=== PATIENT | female | born 1950 | race Two or more races ===

== ENCOUNTER 2025-01-24 01:30 | Emergency (ER) | payer MEDICARE, MEDICAID, SELFPAY ==
[2025-01-24 01:30] VITALS: BMI 28.1
--- NOTE | 2025-01-24 01:34 | PD.EDADULT ---
ED General RME/HPI General Chief complaint: General Adult/Misc Complain Stated complaint: HEADACHE/ BP HIGH 174/92 Time Seen by Provider: 01/24/25 01:34 Arrival date/time: 01/24/25 01:30 RME / HPI RME / HPI narrative: Patient is 74 years old female with past medical history of diabetes type 2 and thyroid cancer s/p total resection presented to the ED due to high blood pressure, headache and dizziness. Per daughter patient was complaining of headache since today's morning and it was worsening. They got blood pressure machine and check her blood pressure which was 170/90. She was never been diagnosed with hypertension before and never had high blood pressure. She denied any nausea, vomiting, chest pain, shortness of breath. She reports her recently and she was in a lot of stress. Related Data Home Medications ?Medication ?Instructions ?Recorded ?Confirmed Levothyroxine * (SYNTHROID *) 88 mcg PO QDAY #0 tabs 12/17/17 metformin 1,000 mg tablet 1,000 mg PO HS #0 tabs 12/17/17 (Glucophage) metformin 500 mg tablet 500 mg PO ACBR #0 tabs 12/17/17 (Glucophage) Previous Rx's ?Medication ?Instructions ?Recorded Prednisone 10 1 tab PO daily #7 tabs 12/17/17 valacyclovir 1 gram tablet 1,000 mg PO daily #7 tabs 12/17/17 (Valtrex) clonidine HCl 0.1 mg tablet 0.1 mg PO Q8H PRN hypertensive 01/24/25 emergency #30 tabs Allergies Allergy/AdvReac Type Severity Reaction Status Date / Time NKA* Allergy Uncoded 11/12/23 07:16 Review of Systems Review of Systems Systems Reviewed: All systems reviewed, normal except as documented ED Exam Narrative Physical exam: Gen: Well-developed and well-nourished elderly female. HEENT: NCAT, PERRLA, EOMI, MMM, anicteric conjunctivae. CVS: normal S1 and S2. RRR. No M/R/G. Resp: CTA B/L. No rhonchi, rales, crackles or wheezing. Abd: soft, non-tender, non-distended. BS+ in all 4 quadrants. MSK: Good ROM in BUE & BLE. No edema or rash. Neuro: CN II-XII grossly intact. Strength 5/5 in BUE & BLE. Alert and oriented x3. Course Course Course Narrative: 021 Hydralazine 10 mg IV given, BP improved to 130/[address] is negative for hemorrhage or mass effect. Quality Measures none Orders Category Date Time Status EKG (ED ONLY) *Do not use* NOW Care 01/24/25 01:55 Completed IV [Insert IV] NOW Care 01/24/25 01:55 Active Straight [In and Out Catheter] X1 Care 01/24/25 02:[address] head/brain wo con Stat Exams 01/24/25 01:54 Taken EKG (ED Only) Stat Exams 01/24/25 01:54 Draft CBC Stat Lab 01/24/25 02:14 Completed CMP [Comprehensive Metabolic Panel] Stat Lab 01/24/25 02:14 Completed Free T4 (Free Thyroxine) Stat Lab 01/24/25 02:14 Completed Magnesium Stat Lab 01/24/25 02:14 Completed TSH [Thyroid Stimulating Hormone] Stat Lab 01/24/25 02:14 Completed Troponin I Stat Lab 01/24/25 02:14 Completed Urinalysis Stat Lab 01/24/25 02:51 Completed Acetaminophen Tab [Tylenol ES Tab] Med 01/24/25 02:35 Discontinued 500 mg PO X1 ONE hydrALAZINE INJ [Apresoline Inj] Med 01/24/25 01:55 Discontinued 10 mg IV X1 ONE Vital Signs Vital signs: Vital Signs Temperature 98.3 F 01/24/25 01:36 Pulse Rate 67 01/24/25 01:36 Respiratory Rate 17 01/24/25 01:36 Blood Pressure 172/93 H 01/24/25 01:36 Pulse Oximetry (%) 99 01/24/25 01:36 Oxygen Delivery Method Room Air 01/24/25 01:36 Procedures -ED EKG Interpretation Sinus bradycardia: Date of EK01/24/25 Time of EK:58 Rate: 57 Interpretation: Reviewed by me Additional EKG comment: Sinus bradycardia MDM Patient data External records reviewed:: [facility] previous records Clinical information provided by:: patient and family Social determinants that could affect healthcare access:: none Patient has the following chronic illnesses:: diabetes type 2 and thyroid cancer s/p total resection How is presenting disease/condition affected by chronic disease/condition?: uneffected by Evaluation data The following diagnostics were reviewed and interpreted by me:: lab results, radiology exam(s) and EKG tracing(s) Lab and/or radiology exams considered but not ordered:: CTA Interpretation Summary: WNL Medications Medications considered but not ordered:: Aspirin, clonidine Medication administrations:: Medication Administration History Discontinued Medications Acetaminophen (Acetaminophen 500 Mg Tablet) 500 mg PO X1 ONE Stop: 01/24/25 02:36 Last Admin: 01/24/25 02:47 Dose: 500 mg Documented By: EF Hydralazine HCl (Hydralazine Inj 20 Mg/Ml Vial) 10 mg IV X1 ONE Stop: 01/24/25 01:56 Last Admin: 01/24/25 02:10 Dose: 10 mg Documented By: EE Hydralazine 10 mg IV. Acetaminophen 500 mg PO. Consultations Consultation(s) initiated? (list below): No Diagnosis Differential Diagnosis ED Complaint MDM: HTN urgency/emergency, CVA, hyperthyroidism Most likely diagnosis given after review of the tests above:: HTN urgency Admission Indicated Admission indicated?: not indicated Explain why admission is indicated or not indicated:: Patient had elevated BP with headache and dizziness, which are resolved after BP was lowered. She can be safely discharged and follow up with PCP outpatient. Admission Request Was there a request for admission?: No Disposition Plan Disposition Plan: Discharge Discharge Attestation Discharge Attestation: The patient and all family members were given an opportunity to ask questions and understood the discharge instructions. Discharge instructions specifically effects, indications for sooner follow up or return to the emergency department, and the expected course of current diagnosis. Patient condition: Stable Medical Decision Making Differential Diagnosis Differential Diagnosis: HTN urgency/emergency, CVA, hyperthyroidism Lab Data 01/24/25 02:14 01/24/25 02:14 Labs: Lab Results 01/24/25 01/24/25 Range/Units 02:14 02:51 WBC 6.2 (3.6-11.0) Thou/mm3 RBC 4.74 (4.00-5.20) Miln/mm3 Hgb 14.5 (12.0-16.0) g/dL Hct 41.6 (36.0-46.0) % MCV 88 (80-100) fL MCH 30.6 (25.0-35.0) pg MCHC 34.9 (31.0-37.0) g/dl RDW Std Deviation 42.5 (36.4-46.3) fL Plt Count 223 (140-440) Thou/mm3 Neut % (Auto) 49 (37-80) % Lymph % (Auto) 37 (10-50) % [place] % (Auto) 9 (0-12) % Eos % (Auto) 4 (0-10) % Baso % (Auto) 1 (0-2.5) % Neut # (Auto) 3.1 (1.8-7.7) Thou/mm3 Lymph # (Auto) 2.3 (1.0-4.8) Thou/mm3 [place] # (Auto) 0.6 (0.0-0.8) Thou/mm3 Eos # (Auto) 0.3 (0.0-0.5) Thou/mm3 Baso # (Auto) 0.1 (0.0-0.2) Thou/mm3 Immature Gran # (Auto) 0.02 H (0.00-0.00) Thou/mm3 Absolute Nucleated RBC 0.00 (0.00-0.00) Thou/mm3 Immature Gran % 0 (0-0) % Nucleated RBC % 0 (0) /100 WBC Sodium 141 (136-145) mMol/L Potassium 3.6 (3.4-5.1) mMol/L Chloride 107 (98-107) mMol/L Carbon Dioxide 26.4 (20.0-31.0) mMol/L Anion Gap 8 (7-16) BUN 11 (9-23) mg/dL Creatinine 0.7 (0.6-1.3) mg/dL Estim Creat Clear Calc 63.6 (>60) mL/min eGFR > 60 (60 - ) See Note BUN/Creatinine Ratio 16 (12-20) Ratio Glucose 138 H (74-106) mg/dL Calculated Osmolality 282 (275-295) Calcium 10.0 (8.3-10.6) mg/dL Corrected Calcium 10.0 (8.5-10.1) mg/dL Magnesium 2.2 (1.6-2.6) mg/dL Total Bilirubin 0.6 (0.3-1.2) mg/dL AST 27 (0-34) U/L ALT 22 (10-49) U/L Alkaline Phosphatase 102 (46-116) U/L Troponin I < 0.002 (0.0-0.045) ng/mL Total Protein 7.9 (5.7-8.2) gm/dL Albumin 4.6 (3.4-4.8) gm/dL Globulin 3.3 (2.3-3.5) gm/dL Albumin/Globulin Ratio 1.4 (1.2-2.2) TSH 5.69 H (0.55-4.78) uIU/mL Free T4 1.40 (0.89-1.76) ng/dL Ur Collection Type Clean Catch Urine Color Colorless A (Lt Yel-Yel) Urine Clarity Clear (Clear/Hazy) Urine pH 6.5 (5.0-7.0) Ur Specific [place] 1.008 (1.001-1.035) Urine Protein Negative (Neg - Trace) Urine Glucose (UA) Negative (Negative) Urine Ketones Negative (Negative) Urine Blood Negative (Negative) Urine Nitrite Negative (Negative) Urine Bilirubin Negative (Negative) Urine Urobilinogen (Auto) Negative (0.0-1.0) mg/dL Ur Leukocyte Esterase Negative (Negative) Urine RBC 2 (0-3) /hpf Urine WBC 2 (0-5) /hpf Ur Squamous Epith Cells < 1 (0-5) /hpf Urine Bacteria None (None) Discharge Plan Plan Patient Disposition: HOME (Self Care) Patient condition on transfer: Stable Prescriptions/Referrals Prescriptions/Med Rec: New clonidine HCl 0.1 mg tablet 0.1 mg PO Q8H PRN (Reason: hypertensive emergency) Qty: 30 0RF No Action metformin [Glucophage] 500 MG tablet 500 mg PO ACBR Qty: 0 metformin [Glucophage] 1,000 MG tablet 1,000 mg PO HS Qty: 0 Levothyroxine * (SYNTHROID *) 88 MCG tablet 88 mcg PO QDAY Qty: 0 valacyclovir [Valtrex] 1,000 MG tablet 1,000 mg PO daily Qty: 7 0RF Prednisone 10 1 tab PO daily Qty: 7 0RF Referrals: Temporary Provider,ED [Physician] - In 1 week Problem List Clinical Impression: Hypertensive urgency Patient/Caregiver Discharge Instructions Education Materials: ED High Blood Pressure ... Additional Instructions: Recommendation after ER visit: -check your blood pressure daily and record it. -follow up with PCP within 1 week. -take clonidine 0.1 mg every 8 hours as needed if BP is above 140/90. Take 2 tablets if BP is above 180/100. -continue home medications as prescribed. -return to the ED if symptoms recur or worsen. Recomendaci?n despu?s de la visita a urgencias: -Controle kaye presi?n arterial diariamente y reg?strela. -Brandon un seguimiento con kaye m?dico de atenci?n primaria dentro de julissa semana. -[place] clonidina 0,1 mg cada 8 horas seg?n sea necesario si la presi?n arterial es superior a 140/90. [place] 2 comprimidos si la presi?n arterial es superior a 180/100. -Contin?e tomando los medicamentos en casa seg?n lo prescrito. -Regrese a urgencias si los s?ntomas reaparecen o empeoran. Print Language: Upper Sorbian Stand Alone Forms: Carol Award Info., Patient Portal Info Letter
[2025-01-24 01:36] VITALS: BP 172/93; PULSE 67; RESP 17; TEMP 36.8; O2SAT 99
--- NOTE | 2025-01-24 01:54 | XR_ITS ---
Examination: CT brain head without contrast. 2-D sagittal coronal reconstructions Date and time of exam:January 24, 2025 0204 hrs. Indications: High blood pressure with headache today CTDI: vol (mGy):49.2 DLP: (mGycm):953 Technique: Multiple CT axial sections of the brain have been obtained, 5 mm slice thickness. Contrast has not been administered. 2-D sagittal, coronal reconstructions have been obtained Low dose protocols were performed. One or more of the following dose reduction techniques were used; automated exposure control, adjustment of the mA and/or KV according to patient size, use of iterative reconstruction technique. Findings: No significant ventricular enlargement. Intra-axial or extra-axial hemorrhage density is not seen. No mass effect or midline shift Basal cisterns are not remarkable. Fourth ventricle is midline. Cranial vault intact. Impression: Negative for acute hemorrhage, mass effect or midline shift
--- NOTE | 2025-01-24 01:54 | EKG_ITS ---
[facility] Test Date: 2025-01-24 Pat Name: RENATE LITTLE Department: Room: - Gender: Female [employer]: : 1950 Requested By: Rudy Chambers Order Number: [id number] Reading MD: Rudy Chambers Measurements Intervals [place] Rate: 57 P: 9 [place]: 158 QRS: 25 QRSD: 99 T: 19 QT: 408 QTc: 399 Interpretive Statements SINUS BRADYCARDIA No previous ECG available for comparison /store/S0/[id number].pdf
[2025-01-24 02:10] VITALS: BP 166/89; PULSE 67
[2025-01-24] MEDS: hydrALAZINE INJ 20 MG/ML VIAL 10 MG IV (02:10)
[2025-01-24 02:12] VITALS: BP 166/89; PULSE 67; RESP 19; TEMP 36.7; O2SAT 96
[2025-01-24 02:25] LABS: Basophils # (Auto) 0.1 Thou/mm3 (0.0-0.2); Basophils % (Auto) 1 % (0-2.5); Eosinophils # (Auto) 0.3 Thou/mm3 (0.0-0.5); Eosinophils % (Auto) 4 % (0-10); Hematocrit 41.6 % (36.0-46.0); Hemoglobin 14.5 g/dL (12.0-16.0); Immature Granulocytes % (Auto) 0 % (0-0); Immature Granulocytes Auto 0.02 Thou/mm3 (0.00-0.00); Lymphocytes # (Auto) 2.3 Thou/mm3 (1.0-4.8); Lymphocytes % (Auto) 37 % (10-50); Mean Corpuscular HGB Conc 34.9 g/dl (31.0-37.0); Mean Corpuscular Hemoglobin 30.6 pg (25.0-35.0); Mean Corpuscular Volume 88 fL (80-100); Monocytes # (Auto) 0.6 Thou/mm3 (0.0-0.8); Monocytes % (Auto) 9 % (0-12); Neutrophils # (Auto) 3.1 Thou/mm3 (1.8-7.7); Neutrophils % (Auto) 49 % (37-80); Nucleated Red Blood Cell % 0 /100 WBC (0); Platelet Count 223 Thou/mm3 (140-440); RDW Standard Deviation 42.5 fL (36.4-46.3); Red Blood Count 4.74 Miln/mm3 (4.00-5.20); White Blood Count 6.2 Thou/mm3 (3.6-11.0)
--- NOTE | 2025-01-24 02:45 | PRELIM_ITS ---
CT scan of the head without intravenous contrast (axial sections with sagittal and coronal reformats). January 24, 2025 at 0204 hours Clinical History: Stroke. Comparison: No prior study is available for comparison. Findings: There is no evidence of intracranial hemorrhage or mass effect. The CSF spaces are prominent consistent with volume loss. There are subcortical and periventricular white matter hypodensities suggestive of small vessel ischemia. The mastoid air cells and visualized paranasal sinuses are clear. Impression: No evidence of intracranial hemorrhage or mass effect. Chronic small vessel ischemia and volume loss. Discussion Details: Results verbally communicated to : Dr Chambers at 02:33 AM 01/24/2025 Report Electronically Signed By: Jaylen Claire 01/24/2025 2:44:04 AM [EST]
[2025-01-24] MEDS: ACETAMINOPHEN 500 MG TABLET PO (02:47)
[2025-01-24 03:03] LABS: Alanine Aminotransferase 22 U/L (10-49); Albumin, Serum 4.6 gm/dL (3.4-4.8); Albumin/Globulin Ratio 1.4 (1.2-2.2); Alkaline Phosphatase 102 U/L (46-116); Anion Gap 8 (7-16); Aspartate Amino Transferase 27 U/L (0-34); BUN/Creatinine Ratio 16 Ratio (12-20); Bilirubin,Total 0.6 mg/dL (0.3-1.2); Blood Urea Nitrogen 11 mg/dL (9-23); Carbon Dioxide 26.4 mMol/L (20.0-31.0); Chloride 107 mMol/L (98-107); Creatinine (Component) 0.7 mg/dL (0.6-1.3); Estimated Creatinine Clearance 63.6 mL/min (>60); Globulin 3.3 gm/dL (2.3-3.5); Glucose 138 mg/dL (74-106); Magnesium 2.2 mg/dL (1.6-2.6); Osmolality,Calculated 282 (275-295); Potassium 3.6 mMol/L (3.4-5.1); Sodium 141 mMol/L (136-145); Thyroid Stimulating Hormone 5.69 uIU/mL (0.55-4.78); Total Protein 7.9 gm/dL (5.7-8.2); Troponin I < 0.002 ng/mL (0.0-0.045); eGFR > 60 See Note
[2025-01-24 03:16] LABS: Collection Type, Urine Clean Catch
[2025-01-24 03:19] LABS: Bilirubin,Urine Negative (Negative); Blood,Urine Negative (Negative); Clarity,Urine Clear (Clear/Hazy); Color,Urine Colorless (Lt Yel-Yel); Glucose, Urine Negative (Negative); Ketones,Urine Negative (Negative); Leukocyte Esterase,Urine Negative (Negative); Nitrite,Urine Negative (Negative); PH,Urine 6.5 (5.0-7.0); Protein,Urine Negative (Neg - Trace); RBC,Urine 2 /hpf (0-3); Specific Gravity,Urine 1.008 (1.001-1.035); Squamous Epithelial Cell,Urine < 1 /hpf (0-5); Urobilinogen,Urine Negative mg/dL (0.0-1.0); WBC,Urine 2 /hpf (0-5)
[2025-01-24 03:40] VITALS: BP 125/67; PULSE 71; RESP 19; TEMP 36.7; O2SAT 99
== END 2025-01-24 04:05 | disposition home or self-care (01) ==
PROVIDERS: Student in an Organized Health Care Education/Training Program; Emergency Provider Emergency Medicine; PCP Nurse Practitioner Family
DX: I16.0 Hypertensive urgency (principal); R51.9 Headache, unspecified; R00.1 Bradycardia, unspecified
CPT/HCPCS: 36415; 70450; 80053; 81001; 83735; 84439; 84443; 84484; 85025; 93005; 99284; J0360; A9270

== ENCOUNTER → 2025-11-11 | Outpatient (CLI) | payer MEDICARE, MEDICAID, SELFPAY ==
[2025-11-11 12:24] LABS: Basophils # (Auto) 0.0 Thou/mm3 (0.0-0.2); Basophils % (Auto) 1 % (0-2.5); Eosinophils # (Auto) 0.2 Thou/mm3 (0.0-0.5); Eosinophils % (Auto) 2 % (0-10); Hematocrit 43.5 % (36.0-46.0); Hemoglobin 14.9 g/dL (12.0-16.0); Immature Granulocytes Auto 0.01 Thou/mm3 (0.00-0.00); Lymphocytes # (Auto) 2.2 Thou/mm3 (1.0-4.8); Lymphocytes % (Auto) 32 % (10-50); Mean Corpuscular HGB Conc 34.3 g/dl (31.0-37.0); Mean Corpuscular Hemoglobin 30.5 pg (25.0-35.0); Mean Corpuscular Volume 89 fL (80-100); Monocytes # (Auto) 0.4 Thou/mm3 (0.0-0.8); Monocytes % (Auto) 6 % (0-12); Neutrophils # (Auto) 4.0 Thou/mm3 (1.8-7.7); Neutrophils % (Auto) 59 % (37-80); Nucleated Red Blood Cell # 0.00 Thou/mm3 (0.00-0.00); Nucleated Red Blood Cell % 0 /100 WBC (0); Platelet Count 259 Thou/mm3 (140-440); RDW Standard Deviation 44.9 fL (36.4-46.3); Red Blood Count 4.89 Miln/mm3 (4.00-5.20); White Blood Count 6.8 Thou/mm3 (3.6-11.0)
[2025-11-11 12:29] LABS: Urea Breath Test Positive (Negative)
[2025-11-11 12:36] LABS: Alanine Aminotransferase 32 U/L (10-49); Albumin, Serum 4.5 gm/dL (3.4-4.8); Albumin/Globulin Ratio 1.2 (1.2-2.2); Alkaline Phosphatase 104 U/L (46-116); Anion Gap 8 (7-16); Aspartate Amino Transferase 32 U/L (0-34); BUN/Creatinine Ratio 18 Ratio (12-20); Bilirubin,Total 0.6 mg/dL (0.3-1.2); Blood Urea Nitrogen 14 mg/dL (9-23); Calcium 10.0 mg/dL (8.3-10.6); Calcium (Corrected) 10.0 mg/dL (8.5-10.1); Carbon Dioxide 28.3 mMol/L (20.0-31.0); Chloride 104 mMol/L (98-107); Creatinine (Component) 0.8 mg/dL (0.6-1.3); Globulin 3.7 gm/dL (2.3-3.5); Glucose 117 mg/dL (74-106); Osmolality,Calculated 280 (275-295); Potassium 4.9 mMol/L (3.4-5.1); Sodium 140 mMol/L (136-145); Total Protein 8.2 gm/dL (5.7-8.2); eGFR > 60 See Note
== END | disposition home or self-care (01) ==
DX: R11.2 Nausea with vomiting, unspecified (principal)
CPT/HCPCS: 36415; 80053; 83013; 83014; 85025